=== PATIENT | male | born 1975 | race Caucasian/White ===

== ENCOUNTER 2019-12-04 11:59 | Emergency (ER) | payer MEDICAID, OTHER ==
[~2019-12-04] VITALS: Ht 175.3 cm; Wt 90.9 kg
[2019-12-04 12:12] VITALS: BP 163/86
[2019-12-04] MEDS ORDERED: PROM25TA14 PO (13:00)
[2019-12-04] MEDS ORDERED: IBUP-1986 PO (13:00)
== END 2019-12-04 13:11 | disposition home or self-care (01) ==
LOC: ER 12:01
DX: F11.20 Opioid dependence, uncomplicated (principal); G43.909 Migraine, unspecified, not intractable, without status migrainosus; F17.200 Nicotine dependence, unspecified, uncomplicated; F41.9 Anxiety disorder, unspecified; Z72.89 Other problems related to lifestyle; Z79.899 Other long term (current) drug therapy; Z76.0 Encounter for issue of repeat prescription
CPT/HCPCS: 99281; 99283